=== PATIENT | male | born 1970 | race Caucasian/White ===

== ENCOUNTER 2024-03-28 08:29 | Emergency (ER) | payer OTHER, SELFPAY ==
[2024-03-28 08:32] VITALS: BP 145/108
--- NOTE | 2024-03-28 09:29 | ED.GENMED ---
History of Present Illness
General
Chief Complaint: Breathing Problem
Source: patient
Exam Limitations: none
Time Seen by Provider: 03/28/24 08:35
History of Present Illness
History of Present Illness:
53-year-old male with some shortness of breath the last few days. Using his nebulizer much more frequently. Some URI symptoms. No pleuritic pain. No hemoptysis. No chest pain. History of similar episodes associated with URI.
Past History
Past History
ED Past Medical History: Asthma, GERD, HTN and Other (obesity)
ED Past Surgical History: Appendectomy, Orthopedic and Other (mandible wiring)
Social History
Tobacco: Non-smoker
Phy Exam
Physical Exam
Physical Exam:
GENERAL: Alert and oriented. Minimally tachypneic. Mild diaphoresis of the forehead
EYE: Orbits normal.
NECK: Supple, no significant adenopathy.
ENT: Pharynx without erythema
CARDIAC: Regular rate and rhythm without any obvious murmurs.
LUNGS: No respiratory distress but diffuse mild end expiratory wheezing
ABDOMEN: Soft, without focal tenderness or distention. Elevated BMI
NEUROLOGICAL: Alert and oriented , grossly non-focal
SKIN: Warm and dry, no rash or lesion, no discoloration, skin intact.
MUSCULOSKELETAL: No edema,no deformity.Good color
PSYCH: Normal and appropriate interaction.
Scores
Heart Failure Risk
Heart Failure Risk Score: Not Applicable
Course
Orders/Labs/Results
Orders:
Orders
03/28/24 08:34
Electrocardiogram (*1) Urgent
Reason for Study: Shortness of Breath
EKG- Treatment ONCE
03/28/24 08:45
IV Insert/Care/Rem.- Treatment PRN
Dexamethasone Sod Phosphate [Decadron] 10 mg IV NOW STA
Ipratropium/Albuterol Sulfate [Duoneb] 3 ml INH R NOW STA
03/28/24 08:46
Cardiac Monitoring- Treatment ONCE
CR Chest - 2 Views Urgent
Comment:
Reason For Exam: cough sob
03/28/24 09:47
Basic Metabolic Panel Urgent
COVID-19 Antigen Urgent
Source: Nasal Swab
Complete Blood Count/With Diff Urgent
D-Dimer Urgent
Troponin I Urgent
Influenza A+B Rapid Molecular Urgent
PITER Source: Nasal Swab
Specimen Description:
Abnormal Lab Results
03/28/24
09:47
RBC 4.45 L 10^6/uL
(4.70-6.10)
MCH 31.9 H pg
(27.0-31.0)
Absolute Neuts (auto) 7.0 H 10^3/uL
(1.4-6.5)
Absolute Lymphs (auto) 1.0 L 10^3/uL
(1.2-3.4)
Absolute Monos (auto) 0.9 H 10^3/uL
(0.1-0.6)
Lymphocytes % 10.7 L %
(20.5-51.1)
Monocytes % 9.6 H %
(1.7-9.3)
Glucose 112 H mg/dl
(70-99)
03/28/24 09:47
03/28/24 09:47
Vital Signs
Initial and Last Documented VS:
Initial Vital Signs
Temp Pulse Resp BP Pulse Ox
98.2 F 74 16 145/108 98
03/28/24 08:32 03/28/24 08:32 03/28/24 08:32 03/28/24 08:32 03/28/24 08:32
Last Documented Vital Signs
Temp Pulse Resp BP Pulse Ox
98.2 F 73 14 159/92 95
03/28/24 08:32 03/28/24 10:15 03/28/24 10:15 03/28/24 10:40 03/28/24 10:38
MDM/Problems Addressed
Differential Diagnosis Includes:
Most suspicious of a viral syndrome with reactive airway disease. Will do nebulizers and steroids. However will also evaluate for cardiac issues or pulmonary emboli.
*Radiology
Radiology exam reviewed: preliminary read by ED provider (Negative) and radiology read reviewed (Negative)
*Pulse Oximetry
Patient hypoxic: no
*EKG
Interpreted by ED Provider?: Yes
Interpretation: normal
Comparison EKG: no changes
Heart Rate: 72
Rate: normal
Rhythm: sinus
[place]: normal axis
Interval: normal interval
QRS Pattern: normal QRS
Ischemia: no ischemia
*Critical Care Note
Total Time (30-74mins, 75-104mins- exclusive of procedures): Not Applicable
Data Reviewed
Review of Other/Old Records Reveals: Labs, Records and Testing
Update Note
Update Note:
1120... In no distress. Very minimal end expiratory wheeze at times. Able to speak without difficulty. Pulse ox 94 to 95%. Workup unremarkable for cardiac or pulmonary emboli. Likely viral syndrome/URI. Will start steroids. Patient does not
want to be on higher dose of steroids however.
ED Attending Note
-
Portions of this chart may have been created with voice recognition software.� Occasional wrong word or��sound alike� substitutions may have occurred due to the inherent limitations of voice recognition software.
Discharge Plan
Departure
Patient Disposition: Home (Routine Discharge)
Date of Disposition: 03/28/24
Time of Disposition: 11:21
Patient with high blood pressure during this ER visit?: Yes
Discharge Problem:
URI/asthma
Instructions: Asthma, Adult (DC), Shortness of Breath (Dyspnea) (DC), Upper Respiratory Infection ED, BLOOD PRESSURE
Prescriptions:
New
prednisone 10 mg tablet
10 mg PO DAILY Qty: 20 0RF
Rx Instructions:
4 tablets day 1. Then 1 less tablet every other day until gone
fluticasone propionate 110 mcg/actuation HFA aerosol inhaler
1 inh inhalation BID Qty: 12 0RF
No Action
albuterol sulfate 2.5 mg /3 mL (0.083 %) Solution For Nebulization
2.5 mg INHALATION Daily PRN (Reason: SOB/ Wheezes)
albuterol sulfate 90 mcg/actuation Hfa Aerosol Inhaler
2 puff inhalation Q4HPRN PRN (Reason: SOB, Wheezes)
multivitamin Tablet
1 tab PO DAILY
aspirin 325 mg Tablet
325 mg PO DAILY Qty: 30 0RF
Rx Instructions:
Take daily x4 weeks for blood clot prevention.
celecoxib 200 mg Capsule
200 mg PO DAILY Qty: 30 0RF
Rx Instructions:
Take with food.
DO NOT take within 2 hours of Aspirin.
docusate sodium 100 mg Capsule
100 mg PO BID Qty: 30 0RF
dexamethasone 2 mg Tablet
2 mg PO Q12 Qty: 5 0RF
Rx Instructions:
Restart night of discharge and take every 12 hours until finished.
Take with food.
lidocaine 4 % Adhesive Patch,Medicated
2 patch topical DAILY Qty: 30 0RF
Rx Instructions:
Over the counter. 12 hours on, 12 hours off.
Apply to sides of left hip/thigh. DO NOT place over incision.
polyethylene glycol 3350 [HealthyLax] 17 gram Powder In Packet
17 g PO DAILY Qty: 14 0RF
sennosides [senna] 8.6 mg Tablet
17.2 mg PO BID Qty: 30 0RF
gabapentin 300 mg capsule
300 mg PO BID Qty: 30 0RF
oxycodone 5 mg tablet
5 mg PO Q3H PRN (Reason: moderate-severe pain) Qty: 35 0RF
Rx Instructions:
1 tab for moderate pain, 2 if severe.
Dx total joint. Ongoing therapy.
ondansetron HCl 4 mg tablet
4 mg PO Q6H PRN (Reason: nausea and vomiting) Qty: 20 0RF
pantoprazole [Protonix] 40 mg tablet,delayed release (DR/EC)
40 mg PO DAILY Qty: 30 0RF
Rx Instructions:
Take daily while on Aspirin and Celebrex to reduce GI upset.
acetaminophen 325 mg tablet
650 mg PO Q4HWA Qty: 60 0RF
Rx Instructions:
DO NOT exceed >4000 mg daily.
metoprolol tartrate 100 mg Tablet
100 mg PO QID Qty: 0 0RF
Rx Instructions:
HOLD if systolic blood pressure <130 while on Oxycodone.
lisinopril 20 mg Tablet
20 mg PO DAILY Qty: 1 0RF
Rx Instructions:
HOLD if systolic blood pressure <145 while on Oxycodone.
famotidine 20 mg tablet
20 mg PO HS Qty: 0 0RF
lorazepam 1 mg Tablet
1 mg PO HSPRN PRN (Reason: anxiety) Qty: 1 0RF
Rx Instructions:
Caution with Oxycodone - can cause drowsiness.
Take only as needed.
Referrals:
Muna Ron PA-C [Family Provider] - Follow up in 2-3 days
Activity Restrictions/Additional Instructions:
You can use your albuterol nebulizer up to 4 hours apart
Start the oral prednisone tomorrow
Use the inhaled steroid twice a day
Close follow-up with your primary physician
Interventions
Interventions:
*Risk Screen - Suicide Last Done: 03/28/24 08:32
*General Assessment Last Done: 03/28/24 10:38
*Neglect/Abuse Screening Last Done: 03/28/24 08:32
ED- Fall Risk Assessment Last Done: 03/28/24 10:38
*ED COVID-19 Vaccine History Last Done: 03/28/24 10:38
ED- Cardiac Assessment Last Done: 03/28/24 10:38
ED- Pulmonary Assessment Last Done: 03/28/24 10:38
Discharge Date and Time
Print Language: BHUTANESE
[2024-03-28] MEDS: DUONEB 3 ML INH (09:51)
[2024-03-28] MEDS: DECADRON 10 MG IV (09:51)
[2024-03-28 09:59] LABS: % Basophils 0.6 % (0-2); % Eosinophils 3.9 % (0-6); % Immature Granulocytes 0.2 % (0-0.5); % Lymphocytes 10.7 % (20.5-51.1); % Monocytes 9.6 % (1.7-9.3); Absolute Basophils 0.1 10^3/uL (0-0.2); Absolute Eosinophils 0.4 10^3/uL (0-0.7); Absolute Monocytes 0.9 10^3/uL (0.1-0.6); Hematocrit 40.6 % (39.0-52.0); Hemoglobin 14.2 g/dL (13.0-18.0); Mean Corpuscular Hgb 31.9 pg (27.0-31.0); Mean Corpuscular Volume 91.2 fL (80.0-94.0); Mean Platelet Volume 9.6 fL (7.4-10.4); Nucleated Red Blood Cells % 0 % (-); Platelet Count 230 10^3/uL (130-400); Red Blood Cell Count 4.45 10^6/uL (4.70-6.10); Red Cell Dist. Width 12.5 % (11.5-14.5); White Blood Cell Count 9.4 10^3/uL (4.8-10.8)
[2024-03-28 10:00] VITALS: BP 159/92
[2024-03-28 10:10] LABS: Blood Urea Nitrogen 19 mg/dl (9-20); Calcium 8.9 mg/dl (8.4-10.2); Carbon Dioxide 25 mmol/L (22-30); Chloride 103 mmol/L (98-107); Glucose 112 mg/dl (70-99); Potassium 4.2 mmol/L (3.5-5.1); Sodium 139 mmol/L (135-145); eGFR > 60.00
[2024-03-28 10:15] LABS: COVID-19 Antigen Negative (Negative)
[2024-03-28 10:40] VITALS: BP 159/92
[2024-03-28 10:50] LABS: Troponin I < 0.012 ng/ml
[2024-03-28 10:51] LABS: D-Dimer < 0.27 ug/mlFEU (0.00-0.50)
[2024-03-28 12:04] VITALS: BP 149/90
== END 2024-03-28 12:05 | disposition home or self-care (01) ==
LOC: EMR 08:29
PROVIDERS: EMERGENCY PHYSICIAN Emergency Medicine; FAMILY PHYSICIAN Physician Assistant Medical
DX: J06.9 Acute upper respiratory infection, unspecified (principal); J45.909 Unspecified asthma, uncomplicated; I10 Essential (primary) hypertension; Z11.52 Encounter for screening for COVID-19
CPT/HCPCS: 99285; 96374; 94640; 71046; 80048; 84484; 85025; 85379; 87502; 87811; 93005

== ENCOUNTER → 2024-10-25 15:56 | Outpatient (REF) | payer OTHER, SELFPAY | LOC: DHSLP 15:56 | PROVIDERS: ATTENDING PHYSICIAN Internal Medicine Critical Care Medicine; FAMILY PHYSICIAN Physician Assistant Medical | DX: G47.33 Obstructive sleep apnea (adult) (pediatric) (principal); R09.02 Hypoxemia | CPT/HCPCS: 95800 ==

== ENCOUNTER 2025-01-10 16:05 | Emergency (ER) | payer OTHER, SELFPAY ==
[2025-01-10 16:15] VITALS: BP 156/97
[2025-01-10 16:57] LABS: Hematocrit 43.2 % (39.0-52.0); Hemoglobin 15.0 g/dL (13.0-18.0); Mean Corp Hgb Conc. 34.7 g/dL (33.0-37.0); Mean Corpuscular Volume 92.9 fL (80.0-94.0); Nucleated Red Blood Cells % 0 % (-); Platelet Count 262 10^3/uL (130-400); Red Cell Dist. Width 12.3 % (11.5-14.5)
[2025-01-10 17:04] LABS: ALT (SGPT) 71 U/L (0-50); AST (SGOT) 37 U/L (17-59); Albumin 4.7 g/dl (3.5-5.0); Alkaline Phosphatase 83 U/L (38-126); Blood Urea Nitrogen 21 mg/dl (9-20); Calcium 9.4 mg/dl (8.4-10.2); Carbon Dioxide 22 mmol/L (22-30); Chloride 106 mmol/L (98-107); Glucose 130 mg/dl (70-99); Potassium 4.8 mmol/L (3.5-5.1); Sodium 135 mmol/L (135-145); Total Protein 7.5 g/dl (6.3-8.2); eGFR > 60.00
[2025-01-10 17:10] LABS: Troponin I < 0.012 ng/ml
[2025-01-10 20:00] VITALS: BP 94/73
--- NOTE | 2025-01-10 20:36 | ED.GENMED ---
History of Present Illness
General
Chief Complaint: Cardiac Symptoms
Source: patient
Exam Limitations: none
Time Seen by Provider: 01/10/25 20:04
Nursing documentation reviewed up to this point in time: agreed with
History of Present Illness
History of Present Illness:
54-year-old male with a past medical history of hypertension, asthma, GERD, obesity, MALLIKA who presents to the emergency department for evaluation of chest pain. Patient reports that symptoms have been intermittent since yesterday morning. He
reports a vague discomfort in the chest that radiates through to the shoulders. He reports associated sensation of mild nausea/burning. No vomiting. He says he has some mild shortness of breath. He says that he feels fatigued. Mild headache.
He denies any cough or fever. He denies any abdominal pain. He denies any other acute complaints. He denies any known cardiac history.
Past History
Past History
ED Past Medical History: Asthma, GERD, HTN and Other (obesity)
ED Past Surgical History: Appendectomy, Orthopedic and Other (mandible wiring)
Social History
Tobacco: Non-smoker
Review of Systems
Review of Systems
All Other Systems: ROS reviewed and negative except as documented in HPI and ROS
Constitutional: Reports fatigue; Denies fever
Respiratory: Reports trouble breathing; Denies cough
Cardiac: Reports chest pain; Denies syncope
ABD/GI: Reports nausea; Denies abdominal pain or vomiting
: Denies flank pain
Musculoskeletal: Denies neck pain
Neurological: Reports headache
Phy Exam
Physical Exam
Physical Exam:
General: Awake, alert, oriented x3; no acute distress
Head: Normocephalic, atraumatic
Eyes: Conjunctiva normal, sclera anicteric
Throat: Airway intact, handling secretions
Neck: Trachea midline, no JVD
Lungs: Clear to auscultation bilaterally, no wheezing, rales, rhonchi
Heart: Regular rate and rhythm, no murmurs, gallops, or rubs
Abd: Soft, non distended, nontender to deep palpation
Neuro: Grossly intact
Skin: no rash in area of concern
Extremities: No edema in extremities, extremities are warm and well-perfused
Scores
Heart Failure Risk
Heart Failure Risk Score: Not Applicable
Heart Score for Chest Pain Patients
STEMI patient?: No
History: Slightly or Non-Suspicious
ECG: Normal
Age: >45 - <65 years
Risk Factors: >/= 3 Risk Factors or History of CAD
Troponin: </= Normal Limit
Heart Score for Chest Pain Patients: 3
Heart Score Risk: 2.5% MACE over next 6 weeks
Withdrawal Assessment of Alcohol
Withdrawal Assessment Completed?: Not applicable
Course
Orders/Labs/Results
Orders:
Orders
01/10/25 16:07
ECG [Electrocardiogram (*1)] Urgent
Reason for Study: Chest Pain
EKG- Treatment ONCE
01/10/25 16:25
Complete Blood Count/With Diff Urgent
Comprehensive Metabolic Panel Urgent
Troponin I Urgent
01/10/25 20:08
CR Chest - 2 Views Urgent
Comment:
Reason For Exam: chest pain, SOB
01/10/25 21:04
D-Dimer Urgent
Lipase Urgent
Troponin I Urgent
Abnormal Lab Results
01/10/25
16:25
RBC 4.65 L 10^6/uL
(4.70-6.10)
MCH 32.3 H pg
(27.0-31.0)
Absolute Monos (auto) 0.8 H 10^3/uL
(0.1-0.6)
Lymphocytes % 18.9 L %
(20.5-51.1)
Monocytes % 10.6 H %
(1.7-9.3)
BUN 21 H mg/dl
(9-20)
Glucose 130 H mg/dl
(70-99)
ALT 71 H U/L
(0-50)
01/10/25 16:25
01/10/25 16:25
Vital Signs
Initial and Last Documented VS:
Initial Vital Signs
Temp Pulse Resp BP Pulse Ox
36.9 C 62 16 156/97 96
01/10/25 16:15 01/10/25 16:15 01/10/25 16:15 01/10/25 16:15 01/10/25 16:15
Last Documented Vital Signs
Temp Pulse Resp BP Pulse Ox
36.9 C 55 16 120/71 99
01/10/25 16:15 01/10/25 21:10 01/10/25 16:15 01/10/25 21:10 01/10/25 21:10
MDM/Problems Addressed
Differential Diagnosis Includes:
GERD, angina/ACS, PE, pneumothorax, costochondritis, pancreatitis, cholelithiasis
MDM/Problems Addressed:
54-year-old male presents for evaluation of atypical nonexertional chest pain intermittently since yesterday associated with multiple other nonspecific symptoms including nausea, headache, shortness of breath, fatigue. Hypertensive otherwise normal
vitals. Physical exam as above. His EKG shows normal sinus rhythm no acute ischemia. Labs were sent in triage including a CBC which shows no clinically significant abnormalities. CMP within acceptable range�marginally elevated ALT unlikely of
acute clinical significance. Initial troponin undetectable. Will repeat troponin. Added lipase. Check D-dimer. Check chest x-ray. Monitor on telemetry. Reassess after the above.
Chest x-ray reviewed by me shows no acute disease. Lipase reviewed and normal. D-dimer negative. Repeat troponin undetectable. Lower suspicion of these are anginal symptoms as they are not exertional. I wonder if it could be more likely GERD
given associated nausea and described burning sensation. He is already on a PPI and famotidine�advised to increase dose of Pepcid. He does have cardiac risk factors although lower suspicion for anginal symptoms will refer to cardiology for full
assessment. I think he is stable for discharge at this point in time. He feels very comfortable with this plan. Spoke about return precautions and all questions answered.
Chronic conditions affecting care:
Obesity, hypertension, GERD
Acute Exacerbation and/or Progression of Chronic Illness:
Acutely hypertensive
Acute Exacerbation and/or Progression of Chronic Illness: HTN
*Radiology
Radiology exam reviewed: preliminary read by ED provider
*Pulse Oximetry
SaO2: 96
Oxygen Mode of Delivery: Room air
Patient hypoxic: no (96%)
*EKG
Interpreted by ED Provider?: Yes
Heart Rate: 58
Rate: bradycardiac
Rhythm: sinus
[place]: normal axis
Interval: normal interval
QRS Pattern: normal QRS
Ischemia: no ischemia
*Critical Care Note
Total Time (30-74mins, 75-104mins- exclusive of procedures): Not Applicable
Data Reviewed
Review of Other/Old Records Reveals: Labs and Records
Source: patient and records
ED Attending Note
-
Portions of this chart may have been created with voice recognition software.� Occasional wrong word or��sound alike� substitutions may have occurred due to the inherent limitations of voice recognition software.
Discharge Plan
Departure
Patient Disposition: Home (Routine Discharge)
Date of Disposition: 01/10/25
Time of Disposition: 21:57
Patient with high blood pressure during this ER visit?: Yes
Discharge Problem:
Chest pain
Instructions: Chest Pain DCA Follow Up
Prescriptions:
No Action
albuterol sulfate 2.5 mg /3 mL (0.083 %) Solution For Nebulization
2.5 mg INHALATION Daily PRN (Reason: SOB/ Wheezes)
albuterol sulfate 90 mcg/actuation Hfa Aerosol Inhaler
2 puff inhalation Q4HPRN PRN (Reason: SOB, Wheezes)
multivitamin Tablet
1 tab PO DAILY
gabapentin 300 mg capsule
300 mg PO BID Qty: 30 0RF
pantoprazole [Protonix] 40 mg tablet,delayed release (DR/EC)
40 mg PO DAILY Qty: 30 0RF
famotidine 20 mg tablet
20 mg PO HS Qty: 0 0RF
amlodipine 10 mg Tablet
10 mg PO DAILY
metoprolol tartrate 50 mg Tablet
100 mg PO QID
ibuprofen 200 mg Tablet
400 mg PO TID
lisinopril 40 mg Tablet
40 mg PO DAILY
fluticasone furoate [Arnuity Ellipta] 100 mcg/actuation Blister With Device
1 inh INHALATION DAILY
lorazepam 1 mg tablet
1 mg PO DAILY
Referrals:
Thor Espinosa MD [Active, Cardiology] - Call in 1-3 days for appt
Muna Ron PA-C [Family Provider, Family Practice]
Activity Restrictions/Additional Instructions:
Thank you for visiting the Emergency Department at [facility].
1. Please schedule a follow up appointment as directed. Call first thing tomorrow morning to make an appointment.
2. If indicated, please take your medications as instructed and indicated on discharge paperwork.
3. If any of your symptoms do not improve, or persist, or become more severe within 6-12 hours, please return to the emergency department for further care.
4. Please return to the emergency department if you develop a headache, neck pain/stiffness, fever greater than 100.4F, chest pain, shortness of breath, persistent nausea, vomiting, slurred speech, difficulty walking, numbness/tingling, weakness,
signs of infection or any other symptoms that are worrisome to you.
Please call [phone] if you have any questions.
Interventions
Interventions:
*Risk Screen - Suicide Last Done: 01/10/25 16:15
*General Assessment Last Done: 01/10/25 20:39
*Neglect/Abuse Screening Last Done: 01/10/25 16:15
*ED- Fall Risk Assessment Last Done: 01/10/25 21:16
ED- Pulmonary Assessment Last Done: 01/10/25 21:14
ED- Cardiac Assessment Last Done: 01/10/25 21:14
Discharge Date and Time
Print Language: CAMBODIAN
[2025-01-10 20:39] VITALS: BMI 44.6
--- NOTE | 2025-01-10 20:50 | EDRN ---
Pt says he has chest pain, nausea, headache, wobbly legs 'like spaghetti' and sob. Symptoms started yesterday and went away. Symptoms returned this morning. Chest pain resolved yesterday but today is almost constant. Pt adds he gets numbness on
the side of his mouth. No chest pain at this time. Sometimes sob at rest. Pt vomited at 1500. Nausea intermittent. No fever/chills/cough, urinary symptoms, constipation/diarrhea. Pt adds he usually has to urinate at work but he noticed lately
he has not had to urinate at work. Pt recently prescribed zepbound which he has not started. No hx of similar chest pain. One month ago, pt noted swelling in R foot. He notes intermittent swelling.
[2025-01-10 21:10] VITALS: BP 120/71
[2025-01-10 21:31] LABS: D-Dimer < 0.27 ug/mlFEU (0.00-0.50)
[2025-01-10 21:33] LABS: Lipase 82 U/L (23-300)
[2025-01-10 21:43] LABS: Troponin I < 0.012 ng/ml
== END 2025-01-10 22:18 | disposition home or self-care (01) ==
LOC: EMR 16:05
PROVIDERS: Emergency Medicine; EMERGENCY PHYSICIAN Emergency Medicine; FAMILY PHYSICIAN Physician Assistant Medical
DX: R07.9 Chest pain, unspecified (principal); I10 Essential (primary) hypertension; E66.9 Obesity, unspecified; K21.9 Gastro-esophageal reflux disease without esophagitis; Z68.41 Body mass index [BMI] 40.0-44.9, adult
CPT/HCPCS: 99285; 71046; 80053; 83690; 84484; 85025; 85379; 93005

== ENCOUNTER 2025-05-15 06:30 | Day surgery (SDC) | payer OTHER, SELFPAY | END 2025-05-15 15:07 | disposition home or self-care (01) | LOC: GI 06:30 | PROVIDERS: ATTENDING PHYSICIAN Internal Medicine | DX: Z12.11 Encounter for screening for malignant neoplasm of colon (principal); R19.5 Other fecal abnormalities; K29.70 Gastritis, unspecified, without bleeding; R12 Heartburn; D12.4 Benign neoplasm of descending colon; K63.5 Polyp of colon; K62.1 Rectal polyp | CPT/HCPCS: 45385; 45380; 43239; 88305; 88342 ==